=== PATIENT | male | born 1970 | race American Indian/Alaskan Native ===

== ENCOUNTER 2023-08-26 20:51 | Emergency (ER) | payer MEDICAID ==
[~2023-08-26] VITALS: Ht 188 cm; Wt 99.8 kg
[2023-08-26 21:12] VITALS: BP 109/68; PULSE 88; RESP 20; TEMP 98; O2SAT 98
[2023-08-26] MEDS ORDERED: LIDOCAINE MPF 1% 10 MG/ML VIAL INJ ONE (23:35)
[2023-08-26] MEDS ORDERED: KETOROLAC 60 MG/2 ML VIAL IM ONE (23:35)
[2023-08-26] MEDS ORDERED: IBUP-2213 PO (23:50)
[2023-08-26] MEDS ORDERED: ACET-8905 PO (23:50)
[2023-08-26] MEDS ORDERED: CEPH-588 PO (23:50)
[2023-08-27 00:30] VITALS: BP 109/68; PULSE 88; RESP 20; TEMP 98; O2SAT 98
== END 2023-08-27 00:30 | disposition home or self-care (01) ==
LOC: MED 20:51
DX: L02.416 Cutaneous abscess of left lower limb (principal); L03.116 Cellulitis of left lower limb; Z98.890 Other specified postprocedural states
CPT/HCPCS: 10060; 96372; 99283; J1885

== ENCOUNTER 2023-11-21 06:00 | Emergency (ER) | payer MEDICAID ==
[~2023-11-21] VITALS: Ht 188 cm; Wt 86.2 kg
[~2023-11-21 06:00] MED LIST: ACET-8905 PO; CEPH-588 PO; IBUP-2213 PO
[2023-11-21 06:05] VITALS: BP 140/84; PULSE 78; RESP 17; TEMP 98; O2SAT 100
[2023-11-21 06:46] VITALS: BP 140/84; PULSE 78; RESP 17; TEMP 98; O2SAT 100
== END 2023-11-21 06:46 | disposition home or self-care (01) ==
LOC: MED 06:00
DX: R60.0 Localized edema (principal); L02.414 Cutaneous abscess of left upper limb; L02.413 Cutaneous abscess of right upper limb; F15.90 Other stimulant use, unspecified, uncomplicated; F11.90 Opioid use, unspecified, uncomplicated; Z98.890 Other specified postprocedural states; Z79.899 Other long term (current) drug therapy
CPT/HCPCS: 99283